=== PATIENT | female | born 2000 | race African-American/Black ===

== ENCOUNTER 2018-03-31 10:11 | Emergency (ER) | payer SELFPAY ==
[~2018-03-31] VITALS: Ht 167.6 cm; Wt 73.0 kg
[2018-03-31 10:17] VITALS: BP 123/77; PULSE 81; RESP 18; TEMP 98.3; O2SAT 100
[2018-03-31 10:22] VITALS: BP 123/77; PULSE 18; O2SAT 100
[2018-03-31] MEDS ORDERED: SODIUM CHLORIDE 0.9% FLUSH 10 ML FLUSH IVF PRN (10:30)
--- NOTE | 2018-03-31 10:33 | PD ---
HPI Chief Complaint: Related Problem Time Seen by Provider: 10:19 Travel History International Travel<30 days: No Contact w/Intl Traveler<30days: No Traveled to known affect area: No History of Present Illness HPI 17-year-old -Al[place] female presents emergency department with vaginal spotting with mild discomfort in the left lower abdominal pelvis region. Patient states she is 6 weeks 2 days . Patient has history of miscarriage before at 12 weeks. She is concerned about possible miscarriage at this time. She denies dysuria, fever, chills, nausea, vomiting, or other constitutional symptoms. Pain is about a 4 out of 10. She denies vaginal discharge. Patient states only spotting, nothing heavier, no clots. She has no known drug allergies. PFSH Past Medical History Hx Anticoagulant Therapy: No Cardiovascular Problems: No Chemotherapy: No Cerebrovascular Accident: No Diabetes: No Respiratory: No ?: Past Surgical History Hysterectomy: No Social History Alcohol Use: No Tobacco Use: No Substance Use: Yes (MARIJUANA) Allergies-Medications (Allergen,Severity, Reaction): Coded Allergies: No Known Allergies (Unverified , 07/21/16) Reported Meds & Prescriptions Reported Meds & Active Scripts Active No Active Prescriptions or Reported Medications Review of Systems Except as stated in HPI: all other systems reviewed are Neg General / Constitutional: No: Fever Eyes: No: Visual changes HENT: No: Headaches Cardiovascular: No: Chest Pain or Discomfort Respiratory: No: Shortness of Breath Gastrointestinal: No: Abdominal Pain Genitourinary: Positive: Pelvic Pain, Vaginal Bleeding, No: Urgency, Frequency , Dysuria Musculoskeletal: No: Pain Skin: No Rash Neurologic: No: Weakness Psychiatric: No: Depression Endocrine: No: Polydipsia Hematologic/Lymphatic: No: Easy Bruising Physical Exam Narrative GENERAL: Patient appears in no obvious distress per SKIN: Warm and dry. Normal color. Normal turgor. HEAD: Atraumatic. Normocephalic. EYES: Pupils equal and round. No scleral icterus. No injection or drainage. ENT: No nasal bleeding or discharge. Mucous membranes pink and moist. Pharynx is clear. Airway is patent. NECK: Trachea midline. Supple and nontender. CARDIOVASCULAR: Regular rate and rhythm. RESPIRATORY: No accessory muscle use. Clear to auscultation. Breath sounds equal bilaterally. GASTROINTESTINAL: Abdomen soft, mild left lower quadrant tenderness, nondistended. No guarding or rebound. No CVA tenderness. Hepatic and splenic margins not palpable. MUSCULOSKELETAL: Extremities without clubbing, cyanosis, or edema. No obvious deformities. NEUROLOGICAL: Awake and alert. No obvious cranial nerve deficits. Motor grossly within normal limits. Five out of 5 muscle strength in the arms and legs. Normal speech. PSYCHIATRIC: Appropriate mood and affect; insight and judgment normal. Data Data Last Documented VS Vital Signs Date Time Temp Pulse Resp B/P (MAP) Pulse Ox O2 Delivery O2 Flow Rate FiO2 03/31/18 10:22 18 123/77 (92) 100 Room Air 03/31/18 10:17 98.3 18 Orders Orders Beta Hcg (Quant/Titer) (03/31/18 10:28) Complete Blood Count With Diff (03/31/18 10:28) Comprehensive Metabolic Panel (03/31/18 10:28) Complete Rh (03/31/18 10:28) Us Pelvis (Ques Preg/Ectopic) (03/31/18 ) Urinalysis - C+S If Indicated (03/31/18 10:28) Iv Access Insert/Monitor (03/31/18 10:28) Ecg Monitoring (03/31/18 10:28) Sodium Chloride 0.9% Flush (Ns Flush) (03/31/18 10:30) Urine Culture (03/31/18 10:40) Acetaminophen (Tylenol) (03/31/18 11:45) Ceftriaxone Inj (Rocephin Inj) (03/31/18 11:45) Labs Laboratory Tests Test 03/31/18 10:40 03/31/18 10:55 Urine Color YELLOW Urine Turbidity SLIGHTY CLOUDY Urine pH 7.0 Urine Specific Wells 1.026 Urine Protein 30 mg/dL Urine Glucose (UA) NEG mg/dL Urine Ketones NEG mg/dL Urine Occult Blood MOD Urine Nitrite NEG Urine Bilirubin NEG Urine Urobilinogen 0.2 MG/DL Urine Leukocyte Esterase MOD Urine RBC 41 /hpf Urine WBC 62 /hpf Urine Squamous Epithelial Cells 8 /hpf Urine Bacteria RARE /hpf Urine Mucus FEW /lpf Microscopic Urinalysis Comment CULTURE INDICATED White Blood Count 7.9 TH/MM3 Red Blood Count 4.56 MIL/MM3 Hemoglobin 14.1 GM/DL Hematocrit 41.3 % Mean Corpuscular Volume 90.7 FL Mean Corpuscular Hemoglobin 30.9 PG Mean Corpuscular Hemoglobin Concent 34.1 % Red Cell Distribution Width 14.1 % Platelet Count 302 TH/MM3 Mean Platelet Volume 9.1 FL Neutrophils (%) (Auto) 60.5 % Lymphocytes (%) (Auto) 27.3 % Monocytes (%) (Auto) 8.3 % Eosinophils (%) (Auto) 3.3 % Basophils (%) (Auto) 0.6 % Neutrophils # (Auto) 4.8 TH/MM3 Lymphocytes # (Auto) 2.1 TH/MM3 Monocytes # (Auto) 0.7 TH/MM3 Eosinophils # (Auto) 0.3 TH/MM3 Basophils # (Auto) 0.0 TH/MM3 CBC Comment DIFF FINAL Differential Comment Blood Urea Nitrogen 12 MG/DL Creatinine 0.68 MG/DL Random Glucose 86 MG/DL Total Protein 7.9 GM/DL Albumin 3.7 GM/DL Calcium Level 8.8 MG/DL Alkaline Phosphatase 103 U/L Aspartate Amino Transf (AST/SGOT) 20 U/L Alanine Aminotransferase (ALT/SGPT) 20 U/L Total Bilirubin 0.5 MG/DL Sodium Level 143 MEQ/L Potassium Level 3.4 MEQ/L Chloride Level 108 MEQ/L Carbon Dioxide Level 25.9 MEQ/L Anion Gap 9 MEQ/L Estimat Glomerular Filtration Rate 135 ML/MIN Human Chorionic Gonadotropin, Quant 1041 MIU/ML [facility] Medical Decision Making Medical Screen Exam Complete: Yes Emergency Medical Condition: Yes Medical Record Reviewed: Yes Differential Diagnosis Early . Spotting in early . Threatened miscarriage. Ectopic . Narrative Course Patient is medically stable at time of exam. Labs ordered including CBC, CMP, serum hCG, urinalysis, type and screen for possible RhoGam ordered. Pelvic ultrasound is ordered. CBC is unremarkable. CMP shows potassium slightly low at 3.4, chloride is 108. Everything else is normal Serum hCG is 1041 Patient's blood type is B+. RhoGam is not warranted. Urinalysis shows probable UTI, and culture is placed. Patient is given 1000 mg acetaminophen p.o. Patient is given 1 g Rocephin IV Ultrasound shows: FINDINGS: Uterus: The myometrium has homogeneous echotexture without mass. There appears to be a tiny gestational sac in the endometrial cavity to small for dates. Right Ovary: Unremarkable. Left Ovary: There is a complex cyst associated with the left ovary measuring 2.3 x 2.2 cm. Other: There is free fluid in the left adnexa. Repeat ultrasound is recommended in 2 weeks. Patient will be treated with Keflex 500 mg 3 times daily for 7 days. Patient should rest, and given a note for today and tomorrow Patient should follow-up with her local primary care OB physician as needed. Patient can return with worsening symptoms as needed Diagnosis Primary Impression: Qualified Codes: Z3A.01 - Less than 8 weeks gestation of Additional Impression: UTI (urinary tract infection) during Qualified Codes: O23.41 - Unspecified infection of urinary tract in , first trimester Referrals: [facility] [employer] [employer] [facility] Patient Instructions: Dysuria (ED), General Instructions Departure Forms: Tests/Procedures, Work Release Enter return to work date: April 02, 2018 Additional Instructions: CBC is unremarkable. CMP shows potassium slightly low at 3.4, chloride is 108. Everything else is normal Serum hCG is 1041 Patient's blood type is B+. RhoGam is not warranted. Urinalysis shows probable UTI, and culture is placed. Patient is given 1000 mg acetaminophen p.o. Patient is given 1 g Rocephin IV Ultrasound shows: FINDINGS: Uterus: The myometrium has homogeneous echotexture without mass. There appears to be a tiny gestational sac in the endometrial cavity to small for dates. Right Ovary: Unremarkable. Left Ovary: There is a complex cyst associated with the left ovary measuring 2.3 x 2.2 cm. Other: There is free fluid in the left adnexa. Repeat ultrasound is recommended in 2 weeks. Patient will be treated with Keflex 500 mg 3 times daily for 7 days. Patient should rest, and given a note for today and tomorrow Patient should follow-up with her local primary care OB physician as needed. Patient can return with worsening symptoms as needed Med/Other Pt SpecificInfo: Prescription(s) given Scripts No Active Prescriptions or Reported Meds Disposition: DISCHARGE HOME Condition: Stable Alberto Seo March 31, 2018 10:33
[2018-03-31 11:10] LABS: AUTOMATED NEUTROPHIL # 4.8 TH/MM3 (1.8-7.7); BASOPHIL % 0.6 % (0.0-2.0); EOSINOPHIL # 0.3 TH/MM3 (0-0.4); EOSINOPHIL % 3.3 % (0.0-4.0); HEMATOCRIT 41.3 % (35.0-46.0); HEMOGLOBIN 14.1 GM/DL (11.6-15.3); LYMPH % 27.3 % (9.0-44.0); LYMPHOCYTE # 2.1 TH/MM3 (1.0-4.8); MEAN CELL VOLUME 90.7 FL (80.0-100.0); MEAN CORPUSCULAR HEMOGLOBIN 30.9 PG (27.0-34.0); MEAN CORPUSCULAR HGB CONC 34.1 % (32.0-36.0); MEAN PLATELET VOLUME 9.1 FL (7.0-11.0); MONO % 8.3 % (0.0-8.0); MONOCYTE # 0.7 TH/MM3 (0-0.9); NEUT % 60.5 % (16.0-70.0); PLATELET COUNT 302 TH/MM3 (150-450); RED BLOOD COUNT 4.56 MIL/MM3 (4.00-5.30); RED CELL DISTRIBUTION WIDTH 14.1 % (11.6-17.2); WHITE BLOOD COUNT 7.9 TH/MM3 (4.0-11.0)
[2018-03-31 11:24] LABS: BILIRUBIN, URINE NEG (NEG); BLOOD, URINE MOD (NEG); GLUCOSE,URINE NEG (NEG); KETONE, URINE NEG (NEG); NITRITE,URINE NEG (NEG); URINE COLOR YELLOW (YELLW/STRAW); URINE LEUKOCYTE ESTERASE MOD (NEG)
[2018-03-31 11:27] LABS: BACTERIA, URINE RARE /hpf; MUCUS URINE FEW /lpf (OCC); SQUAMOUS EPITHELIAL CELL URINE 8 /hpf (0-5)
[2018-03-31] MEDS ORDERED: ACETAMINOPHEN 500 MG CPLT PO ONE (11:45)
[2018-03-31] MEDS ORDERED: cefTRIAXone INJ 1,000 MG in SODIUM CHLORIDE 0.9% INJ 100 ML IV ONE (11:45)
[2018-03-31 11:46] LABS: ALBUMIN 3.7 GM/DL (3.4-5.0); ALT (GPT) 20 U/L (9-42); AST (GOT) 20 U/L (16-38); BICARBONATE 25.9 MEQ/L (21.0-32.0); BLOOD UREA NITROGEN 12 MG/DL (7-18); CALCIUM 8.8 MG/DL (8.5-10.1); CHLORIDE 108 MEQ/L (98-107); CREATININE 0.68 MG/DL (0.50-1.00); GLOMERULAR FILTRATION RATE 135 ML/MIN (>89); GLUCOSE,RANDOM 86 MG/DL (74-106); SODIUM (NA) 143 MEQ/L (136-145)
[2018-03-31 12:01] LABS: ALKALINE PHOSPHATASE 103 U/L (45-117); TOTAL BILIRUBIN ADULT 0.5 MG/DL (0.2-1.0); TOTAL PROTEIN 7.9 GM/DL (6.4-8.2)
--- NOTE | 2018-03-31 13:29 | RADRPT ---
EXAM DATE: 03/31/2018 1:10 PM EDT AGE/SEX: 17 years / Female INDICATIONS: Left lower pelvic pain. Vaginal bleeding. CLINICAL DATA: This is the patient's initial encounter. Patient reports that signs and symptoms have been present for 1 day and indicates a pain score of 4/10. MEDICAL/SURGICAL HISTORY: . History of miscarriage. None. COMPARISON: No prior [facility] exams available for comparison. No external comparison. MEASUREMENTS: Uterus:__8.7 x 4.5 x 6.1 cm Endometrial Stripe:__8 mm Right Ovary:__ 2.0 x 1.3 x 1.6 cm Left Ovary:__ 3.2 x 1.6 x 3.3 cm FINDINGS: Uterus: The myometrium has homogeneous echotexture without mass. There appears to be a tiny gestati onal sac in the endometrial cavity to small for dates. Right Ovary: Unremarkable. Left Ovary: There is a complex cyst associated with the left ovary measuring 2.3 x 2.2 cm. Other: There is free fluid in the left adnexa. CONCLUSION: 1. There appears to be a gestational sac in the endometrial cavity to small for dates. Recommend fol low-up ultrasound in a few weeks. 2. Complex cyst associated with the left ovary measuring 2.3 cm. There is some free fluid in the lef t adnexa. Electronically signed by: Michelet Shelby MD 03/31/2018 1:28 PM EDT
[2018-03-31] MEDS ORDERED: CEPH-460 PO (13:41)
== END 2018-03-31 14:08 | disposition home or self-care (01) ==
LOC: NEPD 10:11
DX: O23.41 Unspecified infection of urinary tract in pregnancy, first trimester (principal); R10.2 Pelvic and perineal pain; Z3A.01 Less than 8 weeks gestation of pregnancy
CPT/HCPCS: 76700; 80053; 81001; 84702; 85025; 86901; 87086; 96365; 96366; 99284; J0696